=== PATIENT | male | born 1995 | race Caucasian/White ===

== ENCOUNTER 2017-12-20 04:20 | Observation (INO) | payer OTHER ==
[2017-12-20] MEDS ORDERED: ALBUTEROL/IPRATROPIUM 1 VIAL SOL INH ONE (05:01)
[2017-12-20] MEDS ORDERED: SODIUM CHLORIDE 0.9% 1000ML 1,000 ML IV ONE (05:01)
[2017-12-20] MEDS ORDERED: LORAZEPAM 2 MG/ML SOL IV ONE (05:01)
[2017-12-20] MEDS ORDERED: LORAZEPAM 2 MG/ML SOL ONE (05:37)
[2017-12-20] MEDS ORDERED: ALBUTEROL/IPRATROPIUM 1 VIAL SOL ONE (05:37)
[2017-12-20 05:40] LABS: APPEARANCE,URINE Clear; BILIRUBIN,URINE NEGATIVE (NEGATIVE); COLOR,URINE Yellow; GLUCOSE, URINE (UA) NEGATIVE (NEGATIVE); KETONES,URINE TRACE (NEGATIVE); LEUKOCYTE ESTERASE ,URINE NEGATIVE (NEGATIVE); NITRATE,URINE NEGATIVE (NEGATIVE); OCCULT BLOOD,URINE NEGATIVE (NEG-TRACE); UROBILINOGEN,URINE 0.2 (0.2-1.0 EU)
[2017-12-20 05:45] LABS: ALBUMIN 4.4 gm/dl (3.4-5.0); BILIRUBIN,TOTAL 1.4 mg/dl (0.2-1.0); CALCIUM 9.2 mg/dl (8.5-10.1); CARBON DIOXIDE 25.4 mEq/L (21-32); CREATININE 1.17 mg/dl (0.80-1.30); POTASSIUM 3.8 mMol/L (3.5-5.1); TOTAL PROTEIN 7.5 gm/dl (6.4-8.2)
[2017-12-20 05:46] LABS: HEMATOCRIT 48 % (39-53); HEMOGLOBIN 16.5 gm/dl (13.5-17.7); MEAN CORPUSCULAR HEMOGLOBIN 30.4 pg (27.0-32.0); MEAN CORPUSCULAR HGB CONC 34.2 gm/dl (32.0-36.0); MEAN CORPUSCULAR VOLUME 89 fL (80-100)
[2017-12-20 05:52] LABS: BARBITUATES NEGATIVE (NEGATIVE); BENZODIAZEPINES NEGATIVE (NEGATIVE); CANNABINOL(THC) NEGATIVE (NEGATIVE); METHADONE NEGATIVE (NEGATIVE); OPIATES(OP13) POSITIVE (NEGATIVE); TRICYCLIC ANTIDEPRESSANTS NEGATIVE (NEGATIVE)
[2017-12-20 05:53] LABS: AMPHETAMINES POSITIVE (NEGATIVE); COCAINE(COC) NEGATIVE (NEGATIVE); METHAMPHETAMINES POSITIVE (NEGATIVE); OXYCODONE(OXY) NEGATIVE (NEGATIVE); PROPOXYPHENE(PPX) NEGATIVE (NEGATIVE)
[2017-12-20 06:06] LABS: BACTERIA 1+ (< 1+); CRYSTALS NEGATIVE (0-3 AVE/HPF); EPITHELIAL CELLS 0-2 (SQUAMOUS); RBC,URINE NEG (0-3AV/HPF); WBC,URINE 0-2 (0-5AV/HPF)
[2017-12-20 06:06] LABS: ABG PH 7.43 (7.35-7.45)
[2017-12-20] MEDS ORDERED: TDAP VACCINE 0.5 ML SUS IM ONE ×2 (06:16→07:10)
[2017-12-20 06:19] LABS: ANISOCYTOSIS SLIGHT; BAND NEUTROPHILS % (MANUAL) 0 %; BASOPHILS % (MANUAL) 0 % (0-3); EOSINOPHILS % (MANUAL) 0 % (0-9); LYMPHOCYTES % (MANUAL) 16 % (10-50); MONOCYTES % (MANUAL) 8 % (0-12); NEUTROPHILS % (MANUAL) 76 % (37-80)
[2017-12-20 08:12] LABS: SALICYLATE < 2.8 mg/dl (2.8-30.0); THYROID STIMULATING HORMONE 0.039 uIU/ml (0.358-3.740)
[2017-12-20 08:14] LABS: ACETAMINOPHEN < 2 ug/ml (10-30); ALCOHOL 0.005 gm/dl (0.000-0.08)
[2017-12-20] MEDS ORDERED: SODIUM CHLORIDE 0.9% FLUSH 10 ML SOL IV SCH (14:15)
[2017-12-20] MEDS: NICOTINE 21 MG PATCH TD SCH (15:42)
[2017-12-21 08:00] VITALS: O2SAT 98
[2017-12-21] MEDS: NICOTINE 21 MG PATCH TD SCH (14:45)
[2017-12-21 15:40] VITALS: BP 107/65; PULSE 73; RESP 18; TEMP 97.8
== END 2017-12-21 17:30 | disposition home or self-care (01) ==
LOC: ED 04:20 → ACUTE CARE 13:51 → UNDOADMOB 13:51 → ACUTE CARE 14:05
PROVIDERS: ADMIT Internal Medicine; ATTEND Internal Medicine
DX: T14.91XA Suicide attempt, initial encounter (principal); X76.XXXA Intentional self-harm by smoke, fire and flames, initial encounter; J70.5 Respiratory conditions due to smoke inhalation; F15.10 Other stimulant abuse, uncomplicated; F19.10 Other psychoactive substance abuse, uncomplicated; F41.8 Other specified anxiety disorders; F22 Delusional disorders
CPT/HCPCS: 36415; 36600; 71260; 80053; 80305; 80307; 81001; 82803; 84443; 85007; 85027; 90471; 90715; 93005; 96365; 96374; 99219; 99285; J2060; Q9967; A9270-GY